=== PATIENT | male | born 1955 | race Caucasian/White ===

== ENCOUNTER 2018-07-10 21:51 | Emergency (ER) | payer OTHER ==
[2018-07-10 21:58] VITALS: BP 148/102; PULSE 80; TEMP 98.3; BMI 22.1
[2018-07-10] MEDS ORDERED: ALBUTEROL SO4 2.5/IPRATROPIUM 0.5 INH SOL 3 ML VIAL.NEB. NEB ONE ×4 (22:03→22:39)
--- NOTE | 2018-07-10 22:19 | PDOC ---
History of Present Illness - General History Source: Patient Exam Limitations: No Limitations - History of Present Illness Initial Comments: 07/10/18 22:50 The patient is a 62 year old male with a significant past medical history of HTN and liver transplant on Prograf who presents to the ER with persistent productive cough and congestion for the past couple of days. Patient states he has been using his inhaler at home with no relief. Patient reports he last had similar symptoms 10 years ago at which time he felt better after albuterol. Patient presents to the ER as his cough has been persistent but he has no prescription for albuterol. Patient does take azithromycin prophylactically three times a week. Patient came back from [facility] one week ago. Patient denies any sick contact. The patient denies chest pain, shortness of breath, headache, and dizziness. Denies fever, chills, nausea, vomit, diarrhea, and constipation. Denies dysuria, frequency, urgency, and hematuria. Allergies: Levofloxacin, penicillins Past surgical history: None reported. Social history: No reported alcohol, drug, or cigarette use. PCP: Dr. Montero ADULT COMPREHENSIVE ROS CONSTITUTIONAL: Absent: fever, chills, diaphoresis, generalized weakness, malaise, loss of appetite HEENT: Absent: rhinorrhea, nasal congestion, throat pain, throat swelling, difficulty swallowing, mouth swelling, ear pain, eye pain, visual Changes CARDIOVASCULAR: Absent: chest pain, syncope, palpitations, irregular heart rate, lightheadedness , peripheral edema RESPIRATORY: Absent: shortness of breath, dyspnea with exertion, orthopnea, wheezing, stridor , hemoptysis Present: Cough. Congestion. GASTROINTESTINAL: Absent: abdominal pain, abdominal distension, nausea, vomiting, diarrhea, constipation, melena, hematochezia GENITOURINARY: Absent: dysuria, frequency, urgency, hesitancy, hematuria, flank pain, genital pain MUSCULOSKELETAL: Absent: myalgia, arthralgia, joint swelling SKIN: Absent: rash, itching, pallor HEMATOLOGIC/IMMUNOLOGIC: Absent: easy bleeding, easy bruising, lymphadenopathy, frequent infections ENDOCRINE: Absent: unexplained weight gain, unexplained weight loss, heat intolerance, cold intolerance NEUROLOGIC: Absent: headache, focal weakness or paresthesias, dizziness, unsteady gait, seizure, mental status changes, bladder or bowel incontinence PSYCHIATRIC: Absent: anxiety, depression, suicidal or homicidal ideation, hallucinations. Adult Comprehensive PE GENERAL: Well developed, well nourished. Awake and alert. No acute distress. HEENT: Normocephalic, atraumatic. PERRLA, EOMI. No conjunctival pallor. Sclera are non- icteric. Moist mucous membranes. Oropharynx is clear. NECK: Supple. Full ROM. No JVD. Carotid pulses 2+ and symmetric, without bruits. No thyromegaly. No lymphadenopathy. CARDIOVASCULAR: Regular rate and rhythm. No murmurs, rubs, or gallops. Distal pulses are 2+ and symmetric. PULMONARY: No rales or rhonchi. Good air entry. (+) Mild wheezing in the bilateral bases. ABDOMINAL: Soft. Non-tender. Non-distended. No rebound or guarding. No organomegaly. Normoactive bowel sounds. MUSCULOSKELETAL Normal range of motion at all joints. No bony deformities or tenderness. No CVA tenderness. EXTREMITIES: No cyanosis. No clubbing. No edema. No calf tenderness. SKIN: Warm and dry. Normal capillary refill. No rashes. No jaundice. NEUROLOGICAL: Alert, awake, appropriate. Cranial nerves 2-12 intact. No deficits to light touch and temperature in face, upper extremities and lower extremities. No motor deficits in the in face, upper extremities and lower extremities. Normoreflexic in the upper and lower extremities. Normal speech. Toes are down- going bilaterally. Gait is normal without ataxia. PSYCHIATRIC: Cooperative. Good eye contact. Appropriate mood and affect. 07/10/18 22:52 <Kelsea Yuan - Last Filed: 07/10/18 22:52> - General History Source: Patient Exam Limitations: No Limitations - History of Present Illness Initial Comments: 07/10/18 23:40 A portion of this note was documented by scribe services under my direction. I have reviewed the details of the note, within reason, and agree with the documentation. The case summary and management plan written by me. Assessment and plan: This is a 62-year-old male who comes in complaining of difficulty breathing and coughing. Patient has a history of bronchiectasis. Patient used his albuterol inhaler without relief. Patient given albuterol here but refused steroids. Patient felt much better and was discharged home with prescription for steroids if he chooses to use them <Yumiko Escobar I - Last Filed: 07/10/18 23:41> - General Chief Complaint: Respiratory Stated Complaint: COUGH Time Seen by Provider: 07/10/18 22:04 Past History <Kelsea Yuan - Last Filed: 07/10/18 22:52> - Past Medical History COPD: No HTN: Yes - Surgical History Abdominal Surgery: Yes (LIVER TRANSPLANT 24 YRS AGO) - Suicide/Smoking/Psychosocial Hx Smoking Status: No Smoking History: Never smoked Number of Cigarettes Smoked Daily: 0 Hx Alcohol Use: No Drug/Substance Use Hx: No <Yumiko Escobar I - Last Filed: 07/10/18 23:41> - Past Medical History Allergies/Adverse Reactions: Allergies Allergy/AdvReac Type Severity Reaction Status Date / Time levofloxacin [From Levaquin] Allergy Verified 02/05/16 15:56 Penicillins Allergy Verified 02/05/16 15:56 Home Medications: Ambulatory Orders Hydrochlorothiazide [Hctz -] 25 mg PO DAILY 02/05/16 Tacrolimus [Prograf] 1 mg PO Q2D 02/05/16 Amlodipine Besylate 2.5 mg PO DAILY 07/10/18 Azithromycin 500 mg PO MOWEFR 07/10/18 predniSONE [Deltasone -] 40 mg PO DAILY #8 tablet 07/10/18 *Physical Exam - Vital Signs Last Vital Signs Temp Pulse Resp BP Pulse Ox 98.3 F 80 18 148/102 99 07/10/18 21:53 07/10/18 21:53 07/10/18 21:53 07/10/18 21:53 07/10/18 21:53 <Kelsea Yuan - Last Filed: 07/10/18 22:52> - Vital Signs Last Vital Signs Temp Pulse Resp BP Pulse Ox 98.3 F 80 18 148/102 99 07/10/18 21:53 07/10/18 21:53 07/10/18 21:53 07/10/18 21:53 07/10/18 21:53 <Yumiko Escobar I - Last Filed: 07/10/18 23:41> ED Treatment Course - Medications Given in the ED: ED Medications Discontinued Medications Generic Name Dose Route Start Last Admin Trade Name Freq PRN Reason Stop Dose Admin Albuterol/Ipratropium 1 amp 07/10/18 22:23 07/10/18 22:05 Duoneb - NEB 07/10/18 22:24 1 amp ONCE ONE Administration <Kelsea Yuan - Last Filed: 07/10/18 22:52> *DC/Admit/Observation/Transfer - Attestations Scribe Attestion: 07/10/18 22:50 Documentation prepared by Kelsea Yuan, acting as medical device assembler for Yumiko Escobar MD. <Kelsea Yuan - Last Filed: 07/10/18 22:52> - Discharge Dispostion Decision to Admit order: No <Yumiko Escobar I - Last Filed: 07/10/18 23:41> Diagnosis at time of Disposition: Acute exacerbation of bronchiectasis - Discharge Dispostion Disposition: HOME Condition at time of disposition: Stable - Prescriptions Prescriptions: predniSONE [Deltasone -] 40 mg PO DAILY #8 tablet - Referrals Referrals: Lacho Montero [Primary Care Provider] - - Patient Instructions Additional Instructions: I sent a prescription to pharmacy for prednisone, take 40 mg a day for 4 days. Use your Ventolin inhaler 2 puffs every 4 hours as needed. Return to the emergency department immediately with ANY new, persistent or worsening symptoms. Continue any medications as previously prescribed by your physician. You should follow up with your primary doctor as soon as possible regarding today's emergency department visit. . Please make sure your doctor reviews the results of your emergency evaluation. Thank you for coming to the Emergency Department today for your care. It was a pleasure to see you today. Please note that your evaluation is INCOMPLETE until you follow-up with your doctor. - Post Discharge Activity
[2018-07-10] MEDS ORDERED: predniSONE 20 MG TABLET (UD) ONE (22:36)
[2018-07-10] MEDS ORDERED: predniSONE 20 MG TABLET (UD) PO ONE (22:39)
== END 2018-07-10 22:55 | disposition home or self-care (01) ==
LOC: SUPCPDRO 21:51 → FER 21:51
PROC: 3E0F7GC Introduction of Other Therapeutic Substance into Respiratory Tract, Via Natural or Artificial Opening (ICD-10-PCS; principal; 2018-07-10)
DX: J47.9 Bronchiectasis, uncomplicated (principal); I10 Essential (primary) hypertension
CPT/HCPCS: 99281-25; J7620

== ENCOUNTER 2022-05-05 15:08 | Emergency (ER) | payer BC, OTHER ==
[2022-05-05 15:43] VITALS: BP 155/103; PULSE 87; TEMP 98.4; BMI 22.1
== END 2022-05-05 16:32 | disposition home or self-care (01) ==
LOC: FER 15:08
DX: U07.1 COVID-19 (principal)
CPT/HCPCS: 71045-TC-FY; 99283-25

== ENCOUNTER 2022-05-06 09:05 | Emergency (ER) | payer BC ==
[2022-05-06] MEDS ORDERED: ONDANSETRON 4 MG/2 ML VIAL IVPUSH ONE (09:15)
[2022-05-06] MEDS ORDERED: BEBTELOVIMAB (EUA) 175 MG/2 ML VIAL IVPUSH ONE (09:16)
[2022-05-06] MEDS ORDERED: SODIUM CHLORIDE 1,000 ML IV STA (09:17)
[2022-05-06 09:19] VITALS: BP 170/93; PULSE 81; TEMP 97.9; BMI 22.1
[2022-05-06] MEDS ORDERED: ONDANSETRON 4 MG/2 ML VIAL ONE (09:20)
[2022-05-06 10:20] LABS: HEMOGLOBIN 12.6 GM/dL (11.7-16.9); MCH 32.2 pg (25.7-33.7); MEAN CELL VOLUME 92.2 fl (80-96); PLATELET COUNT 196 10^3/uL (134-434); RDW 13.1 % (11.9-15.9); WHITE BLOOD COUNT 5.2 K/mm3 (4.0-10.0)
[2022-05-06 10:38] LABS: ALBUMIN 3.7 g/dl (3.4-5.0); BLOOD UREA NITROGEN 15.2 mg/dL (7-18); CALCIUM 9.6 mg/dL (8.5-10.1)
[2022-05-06 10:42] LABS: CREATININE 1.3 mg/dL (0.55-1.3)
[2022-05-06 10:43] LABS: BILIRUBIN,TOTAL 1.6 mg/dL (0.2-1); TOT PROT 7.1 g/dl (6.4-8.2)
[2022-05-06 11:32] LABS: ANISOCYTOSIS 1+; MACROCYTOSIS 0
== END 2022-05-06 11:23 | disposition home or self-care (01) ==
LOC: JER 09:05
PROC: 3E033GC Introduction of Other Therapeutic Substance into Peripheral Vein, Percutaneous Approach (ICD-10-PCS; principal; 2022-05-06)
DX: U07.1 COVID-19 (principal); R05.1 Acute cough
CPT/HCPCS: 36415; 80053; 83690; 85025; 99284-25; Q0222